=== PATIENT | female | born 2000 | race Two or more races ===

== ENCOUNTER 2023-12-09 20:22 | Outpatient (CLI) | payer OTHER | END 2023-12-09 20:28 | disposition home or self-care (01) | LOC: NST 20:22 | PROVIDERS: ATTEND Obstetrics & Gynecology Maternal & Fetal Medicine | DX: Z34.83 Encounter for supervision of other normal pregnancy, third trimester (principal) ==

== ENCOUNTER 2023-12-27 21:54 | Outpatient (CLI) | payer OTHER ==
[~2023-12-27] VITALS: Ht 160 cm; Wt 88.9 kg
[2023-12-27 21:20] VITALS: BP 138/87
[2023-12-27] MEDS ORDERED: PRENATAL TABLE1 EAC1 PO (22:33)
[2023-12-27 23:02] VITALS: BP 119/83
[2023-12-28] MEDS ORDERED: ACETAMINOPHEN 500 MG GEL..CAP PO ONE (02:40)
[2023-12-28] MEDS ORDERED: ACETAMINOPHEN 500 MG GEL..CAP PO PRN (03:00)
[2023-12-28 04:00] VITALS: BP 118/76
[2023-12-28 06:34] VITALS: BP 115/79; O2SAT 100
[2023-12-28 10:57] VITALS: BP 110/79
== END 2023-12-28 10:57 | disposition home or self-care (01) ==
LOC: OBS/DEL 21:54
PROVIDERS: ATTEND Obstetrics & Gynecology
DX: O26.893 Other specified pregnancy related conditions, third trimester (principal); Z3A.35 35 weeks gestation of pregnancy

== ENCOUNTER 2024-01-15 02:06 | Inpatient (IN) | payer OTHER ==
[~2024-01-15] VITALS: Ht 160 cm; Wt 88.9 kg
[2024-01-15 01:53] VITALS: BP 142/93
[~2024-01-15 02:06] MED LIST: PRENATAL TABLE1 EAC1 PO
[2024-01-15] MEDS ORDERED: RINGERS SOLUTION,LACTATED 1,000 ML IV SCH ×2 (02:15→08:30)
[2024-01-15 03:08] LABS: HEMATOCRIT 33.3 % (36.0-45.00); HEMOGLOBIN 11.2 g/dL (12.0-15.00); MEAN CELL VOLUME 80.9 fL (80.00-100.00); MEAN CORPUSCULAR HEMOGLOBIN 27.3 pg (27.00-32.0); MEAN CORPUSCULAR HGB CONC 33.7 g/dl (32.0-36.0); PLATELET COUNT 364 K/uL (150-450); RED BLOOD COUNT 4.12 M/uL (4.00-6.00); RED CELL DISTRIBUTION WIDTH 14.4 % (11.5-14.5)
[2024-01-15 03:30] LABS: ALBUMIN 2.4 gm/dL (3.4-5.0); BILIRUBIN TOTAL 0.68 mg/dL (0.3-1.2); CALCIUM 8.7 mg/dL (8.5-10.1); CREATININE SERUM 0.76 mg/dL (0.55-1.02); GFR 93.5; GLOBULINA 4.2 G/DL (2.4-3.5); POTASSIUM 4.11 mEq/L (3.5-5.1); TOTAL PROTEIN 6.6 gm/dL (6.4-8.2)
[2024-01-15 03:31] LABS: INR 0.94; PARTIAL THROMBOPLASTIN TIME 26.6 SECONDS (22.0-34.0); PROTHROMBIN TIME 10.3 SECONDS (9.0-11.5)
[2024-01-15] MEDS ORDERED: ONDANSETRON HCL 2 MG/ML VIAL IV ONE (05:15)
[2024-01-15] MEDS ORDERED: MORPHINE SULFATE 4 MG/ML VIAL IV ONE (05:15)
[2024-01-15 05:25] VITALS: BP 135/90
[2024-01-15 07:13] VITALS: BP 123/84
[2024-01-15] MEDS ORDERED: KETOROLAC TROMETHAMINE 30 MG VIAL IV SCH (08:27)
[2024-01-15] MEDS ORDERED: MORPHINE SULFATE 4 MG/ML CARTRIDGE IV PRN (08:30)
[2024-01-15] MEDS ORDERED: OXYTOCIN 1,000 ML IV ONE (08:30)
[2024-01-15] MEDS ORDERED: CEFAZOLIN SODIUM 1,000 MG VIAL IV SCH (08:45)
[2024-01-15] MEDS ORDERED: SIMETHICONE 125 MG CAPSULE PO SCH (09:00)
[2024-01-15] MEDS ORDERED: DOCUSATE SODIUM 100MG CAP PO SCH (09:00)
[2024-01-15] MEDS ORDERED: GABAPENTIN 300 MG CAPSULE PO SCH (09:00)
[2024-01-15] MEDS ORDERED: KETOROLAC TROMETHAMINE 30 MG VIAL IV ONE ×2 (11:10→12:00)
[2024-01-15] MEDS ORDERED: ACETAMINOPHEN 500 MG GEL..CAP PO SCH (12:00)
[2024-01-15] MEDS ORDERED: ONDANSETRON HCL 2 MG/ML VIAL IV SCH (12:00)
[2024-01-15] MEDS ORDERED: ERYTHROMYCIN BASE OPHT 1GM EACH TUBE OP ONE (12:15)
[2024-01-15] MEDS ORDERED: OXYTOCIN 10 UNITS/ML VIAL IV ONE (12:15)
[2024-01-15 13:16] VITALS: BP 120/77
[2024-01-15 20:00] VITALS: BP 117/82
[2024-01-16] VITALS: BP 117/78
[2024-01-16 08:00] VITALS: BP 121/76
[2024-01-16] MEDS ORDERED: OxyCODONE HCL 5 MG TABLET (ROXICODONE) PO PRN (08:00)
[2024-01-16 08:08] LABS: HEMATOCRIT 25.7 % (36.0-45.00); MEAN CELL VOLUME 80.3 fL (80.00-100.00); MEAN CORPUSCULAR HEMOGLOBIN 27.1 pg (27.00-32.0); MEAN CORPUSCULAR HGB CONC 33.7 g/dl (32.0-36.0); PLATELET COUNT 274 K/uL (150-450); RED CELL DISTRIBUTION WIDTH 14.7 % (11.5-14.5)
[2024-01-16 08:26] LABS: HEMOGLOBIN 8.7 g/dL (12.0-15.00)
[2024-01-16] MEDS ORDERED: KETOROLAC TROMETHAMINE 10 MG TABLET PO SCH (12:00)
[2024-01-16 15:01] VITALS: BP 123/80
[2024-01-16 20:00] VITALS: BP 124/84
[2024-01-17] VITALS: BP 129/82
[2024-01-17 08:22] VITALS: BP 120/80
== END 2024-01-17 12:30 | disposition home or self-care (01) | DRG 788 ==
LOC: OB/GYN 02:06 → LDR 02:06 → OB/GYN 10:41
PROVIDERS: ADMIT Obstetrics & Gynecology; ATTEND Obstetrics & Gynecology
PROC: 4A1HXCZ Monitoring of Products of Conception, Cardiac Rate, External Approach (ICD-10-PCS; 2024-01-15)
PROC: 10D00Z1 Extraction of Products of Conception, Low, Open Approach (ICD-10-PCS; principal; 2024-01-15 08:00)
DX: O34.211 Maternal care for low transverse scar from previous cesarean delivery (principal); O42.02 Full-term premature rupture of membranes, onset of labor within 24 hours of rupture; Z3A.49 Greater than 42 weeks gestation of pregnancy; Z37.0 Single live birth; Z20.822 Contact with and (suspected) exposure to COVID-19